=== PATIENT | female | born 1990 | race Caucasian/White ===

== ENCOUNTER 2022-05-30 17:57 | Emergency (ER) | payer OTHER ==
[~2022-05-30] VITALS: Ht 200.7 cm; Wt 76.2 kg
[2022-05-30 18:01] VITALS: BP_SYST 119
[2022-05-30 18:56] LABS: ANION GAP 11 (5-15); CALCIUM 8.8 mg/dL (8.4-11.0); CHLORIDE 98 mmol/L (98-107); CREATININE 0.82 mg/dL (0.55-1.30); GLUCOSE 113 mg/dL (70-99); UREA NITROGEN, BLOOD 15 mg/dL (8-21)
[2022-05-30 18:57] LABS: GFR AFRICAN AMERICAN 105 mL/min (>90)
[2022-05-30 18:59] LABS: EOSINOPHILS % (AUTO) 0.2 % (0.0-4.0); HEMOGLOBIN 14.1 g/dL (12.0-16.0); LYMPHOCYTES # (AUTO) 0.6 K/uL (1.0-5.5); MONOCYTES # (AUTO) 0.6 K/uL (0.0-1.0)
[2022-05-30 19:04] LABS: BASOPHILS % (AUTO) 0.3 % (0.0-2.0); HEMATOCRIT 40.3 % (36-48); LYMPHOCYTES % (AUTO) 6.5 % (20.5-51.5); MEAN CORPUSCULAR HEMOGLOBIN 32 pg (27-31); MEAN CORPUSCULAR HGB CONC 35 % (32-36); MEAN CORPUSCULAR VOLUME 93 fL (79.0-98.0); NEUTROPHILS # (AUTO) 7.9 K/uL (1.8-7.7); PLATELET COUNT (AUTO) 318 K/uL (130-430); RED BLOOD CELL COUNT(AUTO) 4.36 MIL/uL (4.2-6.2); RED CELL DISTRIBUTION WIDTH 12.9 % (9.0-15.0); WHITE BLOOD COUNT (AUTO) 9.2 K/uL (4.8-10.8)
[2022-05-30 19:12] LABS: ALANINE AMINOTRANSFERASE 24 U/L (12-78); ALBUMIN 3.7 g/dL (3.4-4.8); ASPARTATE AMINOTRANSFERASE 17 U/L (10-37); THYROID STIMULATING HORMONE 0.39 uIu/mL (0.34-4.82); TOTAL BILIRUBIN 0.6 mg/dL (0.0-1.0)
[2022-05-30] MEDS: MAGNESIUM SULFATE 50 ML IV ONE (21:13)
[2022-05-30] MEDS: NACL 0.9% 1,000 ML IV ONE (21:14)
[2022-05-30] MEDS: ONDANSETRON HCL 4 MG/2 ML VIAL IVP ONE (21:52)
[2022-05-30 22:21] VITALS: BP_SYST 114
== END 2022-05-30 22:21 | disposition home or self-care (01) ==
LOC: SED 17:57
DX: R00.0 Tachycardia, unspecified (principal); F10.239 Alcohol dependence with withdrawal, unspecified; Z79.899 Other long term (current) drug therapy; Y90.6 Blood alcohol level of 120-199 mg/100 ml
CPT/HCPCS: 99284; 96365; 96375; 80053; 84703; 84439; 84443; 85025; 84484; 36415; 93005; 84436; J3475; J2405